=== PATIENT | male | born 1980 | race Caucasian/White ===

== ENCOUNTER 2019-08-22 16:32 | Emergency (ER) | payer OTHER ==
[~2019-08-22] VITALS: Ht 172.7 cm; Wt 74.8 kg
[2019-08-22] MEDS ORDERED: GRALISE600 MG (16:49)
[2019-08-22] MEDS ORDERED: AIMOVIG AU70 MG/1 ML (16:50)
== END 2019-08-23 09:50 | disposition home or self-care (01) ==
LOC: ER 16:32
DX: R53.1 Weakness (principal); R51 Headache
CPT/HCPCS: 70553; 70450; 93005; A9575; 70552